=== PATIENT | male | born 1995 | race Caucasian/White ===

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

== ENCOUNTER 2019-06-04 20:05 | Emergency (ER) | payer OTHER ==
[2019-06-04 20:15] VITALS: BP 135/80; PULSE 69; RESP 18; TEMP 99.2
--- NOTE | 2019-06-04 20:53 | ED ---
Abdominal Pain HPI - General Chief Complaint: Abdominal Pain Stated Complaint: Abd cramping Time Seen by Provider: 06/04/19 20:17 Source: patient Mode of arrival: ambulatory Limitations: no limitations - History of Present Illness Initial Comments: Patient is a 23-year-old male presenting to emergency Department with a chief complaint of abdominal pain. Patient reports intermittent right-sided cramping pain for 3 days. Patient reports he was lifting heavy at the gym prior to the onset. Patient reports it is not tender with palpation but it appears to be exacerbated with certain anatomical movements.. Patient denies any nausea vomiting or diarrhea. Patient reports the cramping is not related to oral intake. Patient also reports right-sided low back pain that has started at the same time but has since resolved. Patient denies saddle anesthesia, urinary or bowel incontinence. Patient also reports that at the same time he developed left-sided testicular pain which has since resolved. Patient denies any testicular swelling or tenderness at this time. Patient is not concerned for STDs. Patient denies any protruding masses near the groin region. Patient denies increased urgency, frequency or dysuria. Patient denies any bowel changes. Patient denies any hematuria, hematochezia or melena. Patient denies taking medication to alleviate his symptoms. - Related Data Home Medications Medication Instructions Recorded Confirmed No Known Home Medications 06/04/19 06/04/19 Allergies Allergy/AdvReac Type Severity Reaction Status Date / Time No Known Allergies Allergy Verified 06/04/19 20:54 Review of Systems ROS Statement: Those systems with pertinent positive or pertinent negative responses have been documented in the HPI. ROS Other: All systems not noted in ROS Statement are negative. Past Medical History Past Medical History: No Reported History History of Any Multi-Drug Resistant Organisms: None Reported Past Surgical History: No Surgical Hx Reported Past Psychological History: No Psychological Hx Reported Smoking Status: Never smoker Past Alcohol Use History: Occasional Past Drug Use History: Marijuana General Exam Limitations: no limitations General appearance: alert, in no apparent distress Head exam: Present: atraumatic, normocephalic, normal inspection Eye exam: Present: normal appearance, PERRL, EOMI Pupils: Present: normal accommodation ENT exam: Present: normal exam, mucous membranes moist, normal external ear exam Neck exam: Present: normal inspection, full ROM Respiratory exam: Present: normal lung sounds bilaterally Cardiovascular Exam: Present: regular rate, normal rhythm, normal heart sounds GI/Abdominal exam: Present: soft, normal bowel sounds. Absent: distended, tenderness (No tenderness.), guarding, rebound, mass, bruit, pulsatile mass, hernia, other (Negative Cheema sign, negative McBurney Point tenderness, negative obturator, negative Rovsing.) exam: Present: normal inspection, other (No indirect hernia noted). Absent: testicular tenderness, urethral discharge, scrotal swelling, vertical testicular lie, circumcision Extremities exam: Present: normal inspection, full ROM, normal capillary refill. Absent: tenderness Back exam: Present: normal inspection, full ROM. Absent: CVA tenderness (R), CVA tenderness (L) Neurological exam: Present: alert, oriented X3 Psychiatric exam: Present: normal affect, normal mood Skin exam: Present: warm, intact, normal color Course Vital Signs 06/04/19 20:11 Temperature 99.2 F Pulse Rate 69 Respiratory 18 Rate Blood Pressure 135/80 O2 Sat by Pulse 98 Oximetry Medical Decision Making - Medical Decision Making Patient is a 23-year-old male presenting to the emergency department with chief complaint of abdominal pain. Patient reports he was lifting heavy about 3 days ago and developed right-sided low back pain which has since resolved. Patient also reports a cramping right-sided abdominal pain that is not related to oral intake. Patient reports the cramping is intermittent that only appears to be exacerbated with certain movements. Patient doesn't have any urinary or bowel symptoms. Physical examination is negative for signs of appendicitis or cholecystitis. Physical examination is also negative for any testicular pathologies including epididymitis, orchitis or indirect hernia. No masses palpated nor protrusion noted on physical examination that would indicate any type of hernia. I suspect the patient to have musculoskeletal pain in the abdomen which seems to be exacerbated with specific anatomical movements. Patient doesn't have any nausea vomiting diarrhea. KUB is unremarkable. At this time no further workup is warranted. Patient's vitals are stable. Patient advised to follow with primary care symptoms not resolve in a few days. Strict return parameters were thoroughly discussed the patient was understanding and agreeable. Case discussed with physician. Disposition Clinical Impression: Abdominal cramping Disposition: HOME SELF-CARE Condition: Stable Instructions (If sedation given, give patient instructions): Abdominal Pain (ED) Additional Instructions: Please follow up with primary care. Please return to emergency department if symptoms worsen. Is patient prescribed a controlled substance at d/c from ED?: No Referrals: Marbella Hollingsworth MD [Primary Care Provider] - 1-2 days Time of Disposition: 21:24
--- NOTE | 2019-06-04 21:01 | XR ---
EXAMINATION TYPE: XR KUB DATE OF EXAM: 06/04/2019 COMPARISON: NONE HISTORY: Pain TECHNIQUE: 2 views upright FINDINGS: Bowel gas pattern is normal. There is no sign of intestinal obstruction or pneumoperitoneum . Fecal pattern is normal. Lung bases are clear. There are no pathologic calcifications. IMPRESSION: Nonacute abdomen.
== END 2019-06-04 21:41 | disposition home or self-care (01) ==
LOC: EC 20:05
DX: R10.9 Unspecified abdominal pain (principal); M54.5 Low back pain; X50.0XXA Overexertion from strenuous movement or load, initial encounter; Y93.89 Activity, other specified; Y92.39 Other specified sports and athletic area as the place of occurrence of the external cause
CPT/HCPCS: 74018; 99283

== ENCOUNTER 2019-09-21 13:30 | Emergency (ER) | payer OTHER ==
[2019-09-21 13:39] VITALS: BP 130/80; PULSE 52; RESP 20; TEMP 98.6
--- NOTE | 2019-09-21 14:13 | ED ---
ENT HPI - General Chief complaint: ENT Stated complaint: ear pain Time Seen by Provider: 09/21/19 13:51 Source: patient, RN notes reviewed Mode of arrival: ambulatory Limitations: no limitations - History of Present Illness Initial comments: 31-year-old male presents emergency Department chief complaint of left ear pain. Patient states he's been dealing with sinus issues over the last 1 week. Patient states she developed severe left ear pain unalleviated with children's Motrin. Patient reports intermittent fevers chills no headache no dizziness no neck pain this time. Patient states is difficult to hear out of his left ear no chest congestion or shortness breath. - Related Data Previous Rx's Medication Instructions Recorded Amoxicillin/Potassium Clav 1 tab PO Q12HR #20 tab 09/21/19 [Augmentin 875-125 Tablet] Allergies Allergy/AdvReac Type Severity Reaction Status Date / Time No Known Allergies Allergy Verified 09/21/19 13:37 Review of Systems ROS Statement: Those systems with pertinent positive or pertinent negative responses have been documented in the HPI. ROS Other: All systems not noted in ROS Statement are negative. Past Medical History Past Medical History: No Reported History History of Any Multi-Drug Resistant Organisms: None Reported Past Surgical History: No Surgical Hx Reported Past Psychological History: No Psychological Hx Reported Smoking Status: Current every day smoker Past Alcohol Use History: Occasional Past Drug Use History: Marijuana General Exam Limitations: no limitations General appearance: alert, in no apparent distress Head exam: Present: atraumatic, normocephalic, normal inspection Eye exam: Present: normal appearance, PERRL, EOMI. Absent: scleral icterus, conjunctival injection, periorbital swelling ENT exam: Present: normal oropharynx, mucous membranes moist, normal external ear exam. Absent: normal exam, TM's normal bilaterally (Effusion mild erythema left TM) Neck exam: Present: normal inspection, full ROM. Absent: tenderness, meningismus, lymphadenopathy Respiratory exam: Present: normal lung sounds bilaterally. Absent: respiratory distress, wheezes, rales, rhonchi, stridor Cardiovascular Exam: Present: regular rate, normal rhythm, normal heart sounds. Absent: systolic murmur, diastolic murmur, rubs, gallop, clicks Neurological exam: Present: alert, oriented X3, CN II-XII intact Skin exam: Present: warm, dry, intact, normal color. Absent: rash Course Vital Signs 09/21/19 13:36 Temperature 98.6 F Pulse Rate 52 L Respiratory 20 Rate Blood Pressure 130/80 O2 Sat by Pulse 98 Oximetry Medical Decision Making - Medical Decision Making Patient was treated for left otitis media advised take decongestant further effusion. Patient continue Tylenol Motrin return for worsening symptoms. Disposition Clinical Impression: Otitis media, Otalgia of left ear Disposition: HOME SELF-CARE Condition: Stable Instructions (If sedation given, give patient instructions): Earache (ED) Additional Instructions: Please return to the Emergency Department if symptoms worsen or any other concerns. Prescriptions: Amoxicillin/Potassium Clav [Augmentin 875-125 Tablet] 1 tab PO Q12HR #20 tab Is patient prescribed a controlled substance at d/c from ED?: No Referrals: None,Stated [Primary Care Provider] - 1-2 days Time of Disposition: 14:13
== END 2019-09-21 14:30 | disposition home or self-care (01) ==
LOC: EC 13:30
DX: H66.92 Otitis media, unspecified, left ear (principal); F17.200 Nicotine dependence, unspecified, uncomplicated
CPT/HCPCS: 99282

== ENCOUNTER → 2020-03-15 | Outpatient (CLI) | payer OTHER ==
--- NOTE | 2020-03-15 09:29 | CT ---
EXAMINATION TYPE: CT chest wo con DATE OF EXAM: 03/15/2020 COMPARISON: None HISTORY: 24-year-old male productive cough with black phlegm TECHNIQUE: Contiguous axial scanning of the chest without IV contrast. Coronal and sagittal reconstru ctions performed. CT DLP: 294.2 mGycm Automated exposure control for dose reduction was used. FINDINGS: Heart normal size without pericardial effusion. Aorta normal caliber with bovine configuration to the aortic arch. Some strandy density within the prevascular space suggesting some residual thymic tissue. Mild bilate ral gynecomastia. No thoracic lymphadenopathy by CT size criteria. Evaluation of the lungs shows no consolidation or pleural effusion. Central airways are clear. Visualized upper abdomen shows a small and atretic left kidney. Bones: No osseous destructive process. IMPRESSION: 1. NO ACUTE PULMONARY PROCESS. 2. 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 CLINICALLY CORRELATE FOR REMOTE VASCULAR OR INFEC TIOUS INSULT OR CONGENITAL ATRESIA.
== END | disposition home or self-care (01) ==
LOC: RADCTMAIN 08:42
PROVIDERS: ATTEND Family Medicine
DX: R05 Cough (principal); F12.90 Cannabis use, unspecified, uncomplicated; R61 Generalized hyperhidrosis
CPT/HCPCS: 71250